=== PATIENT | female | born 1990 | race Asian ===

== ENCOUNTER 2017-08-08 18:49 | Emergency (ER) | payer BC, OTHER ==
[~2017-08-08] VITALS: Ht 172.7 cm; Wt 68.4 kg
[2017-08-08 19:22] VITALS: Ht 172.7 cm; Wt 68.4 kg
[2017-08-08] MEDS ORDERED: KETOROLAC 15 MG INJ IM STA (22:22)
[2017-08-08] MEDS ORDERED: DIAZEPAM 5 MG TAB PO ONE (22:30)
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
--- NOTE | 2017-08-08 23:28 | RADRPT ---
PROCEDURE: XR Lumbar Spine. CLINICAL INDICATION: Lumbar spine pain. TECHNIQUE: AP, lateral, and cone-down lateral view of the lumbar spine were obtained. COMPARISON: No prior studies are available for comparison. FINDINGS: The alignment of the lumbar spine is within normal limits on the lateral view. There is a trace left convex scoliosis centered at L3-4. 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 The vertebral body heights and marrow densit y are normal in appearance. There is preservation of the intervertebral disc spaces. There is no s ignificant facet spondylosis. The neural foramina appear patent. The paraspinal soft tissues unrem arkable. The posterior elements are unremarkable. IMPRESSION: 1. Normal radiographs of the lumbar spine. 2. No evidence of fracture or significant degenerative disc disease. 3. 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 RPTAT: [facility] .Jeremiah Pedro MD, MD Date Time Electronically viewed and signed by .Jeremiah Pedro MD, on 08/08/2017 23:27 .S/
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
[2017-08-09] MEDS ORDERED: DIAZ-90 PO (01:17)
[2017-08-09] MEDS ORDERED: NAPR-260 PO (01:17)
[2017-08-09] MEDS ORDERED: ACETAMINOPHEN 325 MG TAB PO ONE (01:30)
== END 2017-08-09 01:25 | disposition home or self-care (01) ==
LOC: FTE 18:49
DX: M24.551 Contracture, right hip (principal); M54.5 Low back pain
CPT/HCPCS: 72100; 73510; 96372; 99284; J1885